=== PATIENT | male | born 1995 | race Hispanic/Latino ===

== ENCOUNTER 2017-06-16 21:37 | Emergency (ER) | payer OTHER ==
[2017-06-16 21:54] VITALS: BP 154/88
[2017-06-16] MEDS ORDERED: PROAIR HFA8.5 GM INH (21:55)
--- NOTE | 2017-06-16 21:57 | ED HEAD/FACIAL INJ COMPLAINT ---
History of Present Illness General Chief Complaint: Facial or Head Injury Stated Complaint: FACE LAC, SWELLING Source: patient, old records Exam Limitations: no limitations Vital Signs & Intake/Output Vital Signs & Intake/Output Vital Signs Date Time Temp Pulse Resp B/P B/P Pulse O2 O2 Flow FiO2 Mean Ox Delivery Rate 06/16 2153 98.7 77 20 154/88 Allergies Coded Allergies: No Known Allergies (06/16/17) Reconcile Medications Albuterol Sulfate (Proair Hfa) 90 MCG HFA.AER.AD 2 PUF INH Q4-6 PRN PRN ASTHMA (Reported) Triage Note: PER PT FOOLING AROUND AND HIT CORNER OF FOREHEAD ON TABLE, SUSTAINED LAC TO RT FOREHEAD. 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 Triage Nurses Notes Reviewed? yes Onset: Abrupt Severity: mild Severity Numbers: 2 Location: frontal Method of Injury: direct blow Loss of Consciousness: no loss of consciousness Associated Symptoms: DENIES HPI: 22-year-old male presents to ER for evaluation status post sustaining laceration to his right forehead just prior to arrival after he was falling around with a family member and hit his head on a table. He denies loss of consciousness no headache he took Advil prior to arrival. Now presents with a laceration to his 4 head and swelling. He denies any other complaints no neck or back pain nausea vomiting vision changes blurry vision no modifying factors or associated symptoms. (Chaz Martinez) Past History Travel History Traveled to [place] past 21 day No Medical History Any Pertinent Medical History? see below for history Neurological: NONE EENT: NONE Cardiovascular: NONE Respiratory: asthma Gastrointestinal: NONE Hepatic: NONE Renal: NONE Musculoskeletal: NONE Psychiatric: NONE Endocrine: NONE Surgical History Surgical History: none Psychosocial History What is your primary language Jamaican Tobacco Use: Never used Family History Hx Contributory? No (Chaz Martinez) Review of Systems Review of Systems Constitutional: Reports: see HPI. Comments Review of systems: See HPI, All other systems negative. Constitutional, no chills no fever, no malaise HEENT: no sore throat no congestion, Cardiovascular: No chest pain , no palpitation Skin: no rashes, no change in skin Respiratory: No dyspnea no cough GI: No nausea no vomiting, Muscle skeletal: No joint pain, no back pain, no neck pain, Neurologic: , no headache Psych: No stress Heme/endocrine: No bruising (Chaz Martinez) Physical Exam Physical Exam General Appearance: well developed/nourished, no apparent distress, alert Cranial Nerves: normal hearing, normal speech, PERRL Comments: Well-developed well-nourished patient in no apparent distress. HEENT: CRESCENT SHAPED 1.5CM SUPERFICIAL LINEAR LACERATION NOTED OVER THE R EYEBROW WITH SURROUNDING SWELLING, NO VISUALED FB, NO ECCHYMOSIS extraocular motion intact, PERRLA, NO HYPHEMA, NO ENTRAPMENT, NO ORBITAL ECCHYMOSIS THE REST OF THE FACE AND SCALP ARE ATRAUMATIC Neck: Supple, FROM Back: FROM Cardiovascular: Regular rate and rhythms no murmurs rubs or gallops, Respiratory: Chest nontender.There were no bony deformities, no asymmetry. No respiratory distress. Patient speaking in full complete sentences. Breath sounds clear to auscultation bilaterally: NO W/R/R Extremities: full range of motion Neuro: awake, alert, and oriented to person, place and time. There were no obvious focal neurologic abnormalities. Skin: Warm & dry;No appreciable rash on exposed skin Psych: Mood affect normal, normal memory normal judgment. Diagram Head: 1) LACERATION DESCRIBED (Chaz Martinez) Progress Differential Diagnosis: facial fracture, globe injury, ICH, orbit fracture, skull fracture Plan of Care: Current Medications Sig/Abelino Start time Last Medication Dose Stop Time Status Admin Lidocaine 20 ML ONCE ONE 06/16 2199 UNVr (Lidocaine 1%) 06/16 2200 Tetanus/Diphtheria 0.5 ML ONCE ONE 06/16 2199 UNVr Toxoids Adsorbed 06/16 2200 (Decavac) Wound thoroughly irrigated with normal saline Betadine peroxide, anesthetized with lidocaine 1% 5 mL, sutures 4-0 placed by myself. pt tolerated well. I discussed the patient the possibility 4 -X 3 I discussed with the patient the possibility of a foreign body not seen on examination still exist return portions were discussed at length he will return in 5-7 days for suture removal. Patient feels comfortable with plan cleared for discharge (Chaz Martinez) Departure Departure Time of Disposition: 2233 Disposition: HOME OR SELF CARE Condition: Stable Clinical Impression Primary Impression: Facial laceration Additional Instructions: Keep area clean and covered as discussed, bacitracin daily. Return to ER in 7- 10 days for suture removal. Please understand that foreign bodies such as glass or wood may not be visible to the naked eye. If the wound becomes red, swollen, increasingly more painful or if there is any drainage from the wound, please have it reevaluated by a physician for the possibility of a retained foreign body. Departure Forms: Customer Survey General Discharge Information (Chaz Martinez) PA/MATH AND PHYSICS INSTRUCTOR Co-Sign Statement Statement: ED Attending supervision documentation- [] I saw and evaluated the patient. I have also reviewed all the pertinent lab results and diagnostic results. I agree with the findings and the plan of care as documented in the PA's/MATH AND PHYSICS INSTRUCTOR's documentation. [X] I have reviewed the ED Record and agree with the PA's/MATH AND PHYSICS INSTRUCTOR's documentation. [] Additions or exceptions (if any) to the PAs/MATH AND PHYSICS INSTRUCTOR's note and plan are summarized below: [] (Fam HAN,Eldon Martin) Procedures Laceration/Wound Repair Laceration/Wound Repair: Wound Location: head Wound's Depth, Shape: superficial, CRESCENT SHAPED Wound Length (cm): 1.5 Wound Explored: clean, no foreign body removed, irrigated extensively Irrigated w/ Saline (ccs): 150 Betadine Prep? Yes Anesthesia: 1% lidocaine Volume Anesthetic (ccs): 5 Wound Repaired With: sutures, Steri-strips Suture Size/Type: 5:0 Number of Sutures: 3 Layer Closure? No Sterile Dressing Applied: Yes Date of Last Tetanus: 06/16/17 Tetanus Status: up to date (Chaz Martinez)
== END 2017-06-16 22:33 ==
LOC: ERH 21:37
DX: S01.81XA Laceration without foreign body of other part of head, initial encounter (principal); W22.03XA Walked into furniture, initial encounter; Y93.83 Activity, rough housing and horseplay; Y92.9 Unspecified place or not applicable